=== PATIENT | female | born 1995 | race Two or more races ===

== ENCOUNTER → 2020-04-21 | Outpatient (CLI) | payer OTHER ==
[~2020-04-21] MED LIST: OXYC-325 PO; PROM25TA10 PO
== END ==
LOC: LAB 12:01
PROVIDERS: ATTEND Orthopaedic Surgery
DX: Z01.812 Encounter for preprocedural laboratory examination (principal); Z20.822 Contact with and (suspected) exposure to COVID-19
CPT/HCPCS: U0003

== ENCOUNTER 2020-04-25 12:02 | Day surgery (SDC) | payer OTHER ==
[~2020-04-25] VITALS: Ht 160 cm; Wt 66.7 kg
[~2020-04-25 12:02] MED LIST changes: +BUPIVACAINE-EPI 0.25% 30 ML VIAL KIT. ONE; +DEXAMETHASONE SOD PHOS 4 MG/ML VIAL ONE; +IV RINGERS,LACTATED 1000ML 1,000 ML IV SCH; +LIDOCAINE 2% PF 5 ML VIAL. ONE; +MIDAZOLAM HCL/PF 2 MG/2 ML VIAL. ONE; +MORPHINE SULFATE 2 MG/ML VIAL. IVP PRN; +ONDANSETRON PF 4 MG/2 ML VIAL. ONE; -OXYC-325 PO; -PROM25TA10 PO; +PROPOFOL 10 MG/ML (20ML) VIAL. IV ONE; +fentaNYL PF VIAL 100 MCG/2 ML VIAL IVP PRN; +fentaNYL PF VIAL 100 MCG/2 ML VIAL ONE
[2020-04-25] MEDS ORDERED: OXYC-325 PO ×2 (12:51→15:17)
[2020-04-25] MEDS ORDERED: fentaNYL PF VIAL 100 MCG/2 ML VIAL ONE (13:47)
[2020-04-25] MEDS ORDERED: KETOROLAC 30 MG/ML VIAL. ONE (14:51)
--- NOTE | 2020-04-25 14:57 | PDOC4 ---
Operative Note Operative Note Date of Procedure: April 25, 2020 Pre-Op Diagnosis: Closed displaced spiral fracture of shaft of right tibia, initial encounter - S82.241A Post-Op Diagnosis: Same Procedure: Treatment of tibial shaft fracture (and associated fibula fracture) by intramedullary implant with interlocking screws CPT 94168 Surgeon: Cyrus Birch MD Training Intern: BRYON Carmichael Anesthesia: General EBL: 200 mL Specimens Obtained: none Complications: none Drains: none Tourniquet: 17 minutes at 250 mmHg Implants: Gus T2 Alpha tibial nail system 9 mm x 315 mm, Locking screws 5x35 mm, 5x32.5 mm, 5x40 mm, 5x42.5 mm, end cap 11.5 mm +20 mm. Indications for Procedure: The patient is a 24 year old who fractured her tibia and fibula while rollerskating. X-rays showed a displaced tibial shaft fract ure and associated fibular shaft fracture also displaced with no apparent ankle joint disruption. The injury was closed. Initially we tried nonoperative treatment for a few days due to minimal displacement, but the fracture was too unstable, and became more displaced and rotated. I recommended intramedullary nailing. We discussed the risks and benefits. We discussed potential risks of infection, blood clots, malunion or nonunion, need for hardware removal, compartment syndrome, or other potential surgical or anesthetic complications. All of her questions about surgery were answered and she desired to proceed. A written consent was obtained. Procedure in Detail: The patient was identified in the preoperative holding area. The correct left lower extremity was marked by me. The patient was taken to the operating room where general anesthesia was used. The patient was positioned supine on the operating table. Preoperative antibiotics were given intravenously. A tourniquet was used on the upper thigh. A timeout procedure was performed. The limb was prepared in sterile fashion with surgical prep solution. Sterile drapes were applied. A Coban was placed over the foot and toes. The large image intensifier was used throughout the procedure, and all the images were interpreted intraoperatively by me. A preliminary reduction was performed and the reduction maintained with traction, angulation and rotation by my fire assistant when reaming was performed. An Esmarch bandage was used to exsanguinate the limb and the tourniquet was inflated. A longitudinal incision was used over the patellar tendon. The patella tendon was retracted laterally. Bovie electrocautery was used for hemostasis. The entry Awl was used to enter the proximal tibia, and the entry point was confirmed in the AP and lateral planes on the image intensifier. A beaded guidewire was placed. My fire assistant held the reduction, and the guidewire was placed across the fracture site. The guidewire was measured for length. The tourniquet was released. Sequential reaming was performed over the guidewire with the fracture held reduced by my fire assistant, and using the tissue protector. I reamed up to size 10.5 mm for the 9 mm nail, and had intramedullary chatter at the isthmus with the 10 mm reamer. The 9 mm x 315 mm nail was chosen and opened. Copious saline irrigation was used. The nail was attached to the nail adapter and strike plate, and placed down the intramedullary canal without difficulty. Mallet blows were used for final placement, confirmed on the image intensifier proximally and distally. The targeting arm was applied and then 2 transverse cross lock screws were placed through the targeting arm. Length of the screws and positioned in the nail was confirmed with the image intensifier. The nail adapter was removed by loosening the nail holding screw, and the targeting arm was also removed. The image intensifier showed excellent reduction and alignment. The distal cross locking screws were placed using a freehand technique, and the image intensifier. I placed 2 medial to lateral screws. Biplanar image intensifier view showed satisfactory hardware placement and satisfactory reduction of the fracture. Copious irrigation was used. The incisions were closed with #1 Vicryl in the peripatellar fascia. #2-0 Vicryl was used in the subcutaneous cutaneous tissues by my fire assistant. Wilton were placed in the skin. 30 mL of 0.25% bupivacaine with epinephrine was injected into the skin edges. Xeroform and sterile dressings were applied. Needle and sponge counts were correct. There were no apparent complications. CYRUS BIRCH MD Apr 25, 2020 14:57
[2020-04-25] MEDS ORDERED: SEVOFLURANE 61 TO 120 MINUTES. IH ONE (15:04)
[2020-04-25] MEDS ORDERED: MORPHINE SULFATE 10 MG/ML VIAL. ONE (15:11)
[2020-04-25] MEDS ORDERED: PROCHLORPERAZINE 10 MG/2 ML VIAL. ONE (15:14)
[2020-04-25] MEDS ORDERED: oxyCODONE/APAP 5/325 1 TAB TABLET PO ONE ×2 (15:15)
[2020-04-25] MEDS ORDERED: PROM25TA10 PO (15:17)
[2020-04-25] MEDS: PROCHLORPERAZINE 10 MG/2 ML VIAL. IVP PRN ×2 (15:19→15:28)
[2020-04-25] MEDS ORDERED: HYDROmorphone 2 MG/ML VIAL ONE (15:42)
[2020-04-25] MEDS: HYDROmorphone 2 MG/ML VIAL IVP PRN ×2 (15:52→16:08)
[2020-04-25 17:00] VITALS: BP 158/78
== END 2020-04-25 17:39 | disposition home or self-care (01) ==
LOC: SURG 12:02
PROVIDERS: ATTEND Orthopaedic Surgery
DX: S82.241A Displaced spiral fracture of shaft of right tibia, initial encounter for closed fracture (principal); S82.441A Displaced spiral fracture of shaft of right fibula, initial encounter for closed fracture; E66.9 Obesity, unspecified; Z90.49 Acquired absence of other specified parts of digestive tract; Z98.890 Other specified postprocedural states; Z79.899 Other long term (current) drug therapy; X58.XXXA Exposure to other specified factors, initial encounter; Y93.89 Activity, other specified; Y92.89 Other specified places as the place of occurrence of the external cause; Y99.8 Other external cause status
CPT/HCPCS: 27759; 81025; A4213; A4364; A4930; A6253; A6402; A6450; C1713; C1769; J0690; J0780; J1100; J1170; J1885; J2250; J2270; J2405; J2704; J3010; 76000; A4657